=== PATIENT | female | born 1985 | race Caucasian/White ===

== ENCOUNTER 2023-01-11 18:01 | Emergency (ER) | payer OTHER ==
[~2023-01-11] VITALS: Ht 152.4 cm; Wt 127.0 kg
[2023-01-11] MEDS ORDERED: GUAIFENESIN/D-METHORPHAN HB 5 ML UDC ONE (22:06)
[2023-01-11] MEDS ORDERED: KETOROLAC TROMETHAMINE INJ 30 MG/ML VIAL ONE (22:07)
[2023-01-11] MEDS: GUAIFENESIN/D-METHORPHAN HB 5 ML UDC PO ONE (22:11)
[2023-01-11] MEDS: KETOROLAC TROMETHAMINE INJ 30 MG/ML VIAL IM ONE (22:12)
[2023-01-11] MEDS ORDERED: BENZ-13 PO (23:26)
[2023-01-11] MEDS ORDERED: GUAI1TBM19 PO (23:26)
[2023-01-11 23:35] VITALS: BP 164/75; TEMP 98.7; O2SAT 97
== END 2023-01-11 23:36 | disposition home or self-care (01) ==
LOC: ER 18:09
DX: J06.9 Acute upper respiratory infection, unspecified (principal); R05.9 Cough, unspecified; Z79.899 Other long term (current) drug therapy; Z20.822 Contact with and (suspected) exposure to COVID-19
CPT/HCPCS: 99284; 71045; 87426; 96372; 87804 ×2; J1885; C9803